=== PATIENT | male | born 1960 | race Caucasian/White ===

== ENCOUNTER 2017-06-26 19:03 | Emergency (ER) | payer OTHER ==
[~2017-06-26 19:03] MED LIST: AMIT25TA20 PO; LYRI50CA2 PO
[2017-06-26 19:08] VITALS: BP 155/86; PULSE 126; RESP 20; TEMP 97.3
--- NOTE | 2017-06-26 19:52 | PD ---
HPI Chief Complaint: GI Complaint Time Seen by Provider: 19:37 Travel History International Travel<30 days: No Contact w/Intl Traveler<30days: No Traveled to known affect area: No History of Present Illness HPI Patient is a 57-year-old male who after eating a hamburger and a pork chop tonight 2 hrs prior to arrival developed severe diarrhea and vomiting and epigastric pain >> He has had multiple episodes of diarrhea and vomiting. His had the same pork chop but she did not eat the hamburger. He ate same meat of the hamburger yesterday without any problem. He has no history of irritable bowel syndrome no history of ulcerative colitis or any other bowel issues. He is taken nothing to alleviate his symptoms and he has not seen another doctor prior to coming to the ER ,, he reports mild epigastric pain after vomiting but no other abdomen pain. His offers the information that whenever he has a breakfast sausage he often has the same problem during my initial exam and interview he gets up to run to the bathroom to have another episode of diarrhea PFSH Past Medical History Diminished Hearing: No Medical other: Yes (FALL FROM 17 FT 2008, DISC PAIN ) Tetanus Vaccination: Unknown Influenza Vaccination: No Past Surgical History Other Surgery: Yes (ENT X 2 ) Social History Alcohol Use: No (QUIT 33 YRS AGO) Tobacco Use: Yes (1/2 PPD) Substance Use: No Allergies-Medications (Allergen,Severity, Reaction): Coded Allergies: No Known Allergies (Unverified Adverse Reaction, Unknown, 06/26/17) Reported Meds & Prescriptions Reported Meds & Active Scripts Active Pepcid (Famotidine) 20 Mg Tab 20 Mg PO BID Zofran Odt (Ondansetron Odt) 4 Mg Tab 4 Mg SL Q6HR PRN Review of Systems Except as stated in HPI: all other systems reviewed are Neg Gastrointestinal: Positive: Nausea, Vomiting, Diarrhea, Abdominal Pain Physical Exam Narrative GENERAL: thin body habitus poor dentition AOX3 non toxic appearance SKIN: Warm and dry. HEAD: Atraumatic. Normocephalic. EYES: Pupils equal and round. No scleral icterus. No injection or drainage. ENT: No nasal bleeding or discharge. Mucous membranes pink and moist. NECK: Trachea midline. No JVD. CARDIOVASCULAR: Regular rate and rhythm. RESPIRATORY: No accessory muscle use. Clear to auscultation. Breath sounds equal bilaterally. GASTROINTESTINAL: Abdomen mild tender over epigastrum area .. , nondistended. Hepatic and splenic margins not palpable. MUSCULOSKELETAL: Extremities without clubbing, cyanosis, or edema. No obvious deformities. NEUROLOGICAL: Awake and alert. No obvious cranial nerve deficits. Motor grossly within normal limits. Five out of 5 muscle strength in the arms and legs. Normal speech. PSYCHIATRIC: Appropriate mood and affect; insight and judgment normal. Data Data Last Documented VS Vital Signs Date Time Temp Pulse Resp B/P (MAP) Pulse Ox O2 Delivery O2 Flow Rate FiO2 06/26/17 19:08 97.3 126 20 155/86 (109) Orders Orders Complete Blood Count With Diff (06/26/17 19:53) Comprehensive Metabolic Panel (06/26/17 19:53) Ckmb (Isoenzyme) Profile (06/26/17 19:53) Troponin I (06/26/17 19:53) Lipase (06/26/17 19:53) Ua Includes Microscopic (06/26/17 19:53) Alcohol (Ethanol) (06/26/17 19:53) Ondansetron Inj (Zofran Inj) (06/26/17 20:00) Sodium Chlor 0.9% 1000 Ml Inj (Ns 1000 M (06/26/17 20:00) Famotidine Inj (Pepcid Inj) (06/26/17 20:15) CKMB (06/26/17 20:25) CKMB% (06/26/17 20:25) Sodium Chlor 0.9% 1000 Ml Inj (Ns 1000 M (06/26/17 21:45) Ed Discharge Order (06/26/17 23:07) Labs Laboratory Tests Test 06/26/17 20:25 06/26/17 22:10 White Blood Count 17.3 TH/MM3 Red Blood Count 5.88 MIL/MM3 Hemoglobin 17.0 GM/DL Hematocrit 50.8 % Mean Corpuscular Volume 86.5 FL Mean Corpuscular Hemoglobin 28.9 PG Mean Corpuscular Hemoglobin Concent 33.4 % Red Cell Distribution Width 13.1 % Platelet Count 199 TH/MM3 Mean Platelet Volume 8.7 FL Neutrophils (%) (Auto) 89.9 % Lymphocytes (%) (Auto) 2.4 % Monocytes (%) (Auto) 2.6 % Eosinophils (%) (Auto) 1.0 % Basophils (%) (Auto) 4.1 % Neutrophils # (Auto) 15.6 TH/MM3 Lymphocytes # (Auto) 0.4 TH/MM3 Monocytes # (Auto) 0.4 TH/MM3 Eosinophils # (Auto) 0.2 TH/MM3 Basophils # (Auto) 0.7 TH/MM3 CBC Comment DIFF FINAL Differential Comment Blood Urea Nitrogen 19 MG/DL Creatinine 1.30 MG/DL Random Glucose 104 MG/DL Total Protein 7.6 GM/DL Albumin 4.1 GM/DL Calcium Level 9.1 MG/DL Alkaline Phosphatase 88 U/L Aspartate Amino Transf (AST/SGOT) 22 U/L Alanine Aminotransferase (ALT/SGPT) 18 U/L Total Bilirubin 0.6 MG/DL Sodium Level 138 MEQ/L Potassium Level 5.2 MEQ/L Chloride Level 105 MEQ/L Carbon Dioxide Level 28.6 MEQ/L Anion Gap 4 MEQ/L Estimat Glomerular Filtration Rate 57 ML/MIN Total Creatine Kinase 114 U/L Creatine Kinase MB 1.5 NG/ML Troponin I LESS THAN 0.02 NG/ML Lipase 91 U/L Ethyl Alcohol Level LESS THAN 3 MG/DL Urine Color YELLOW Urine Turbidity CLEAR Urine pH 5.0 Urine Specific [place] GREATER/EQUAL 1.030 Urine Protein TRACE mg/dL Urine Glucose (UA) NEG mg/dL Urine Ketones TRACE mg/dL Urine Occult Blood NEG Urine Nitrite NEG Urine Bilirubin NEG Urine Urobilinogen 0.2 MG/DL Urine Leukocyte Esterase NEG Urine WBC 0-2 /hpf Urine Squamous Epithelial Cells 0-5 /hpf Microscopic Urinalysis Comment CULT NOT INDICATED MDM Medical Decision Making Medical Screen Exam Complete: Yes Emergency Medical Condition: Yes Differential Diagnosis food toxin vs viral gastroenteritis vs obstruction , hepatits GB disease , pancreatitis Narrative Course pt given @ liters NS and zofran IV and PEPCID IV tolerated PO d/c with Zofran Rx and foolow up outpt with MD return if worse Diagnosis Primary Impression: Gastroenteritis and colitis, viral Scripts Famotidine (Pepcid) 20 Mg Tab 20 MG PO BID, #20 TAB 0 Refills Prov: Henry Keita MD 06/26/17 Ondansetron Odt (Zofran Odt) 4 Mg Tab 4 MG SL Q6HR Y for Nausea/Vomiting, #12 TAB 0 Refills Prov: Henry Keita MD 06/26/17 Disposition: 01 DISCHARGE HOME Henry Keita MD Jun 26, 2017 19:52
[2017-06-26] MEDS ORDERED: ONDANSETRON HCL 4 MG/2 ML VIAL IV PUSH ONE (20:00)
[2017-06-26] MEDS ORDERED: SODIUM CHLOR 0.9% 1000 ML INJ 1,000 ML IV ONE ×2 (20:00→21:45)
[2017-06-26] MEDS ORDERED: FAMOTIDINE 20 MG/2 ML VIAL IV PUSH SCH (20:15)
[2017-06-26 20:40] LABS: AUTOMATED NEUTROPHIL # 15.6 TH/MM3 (1.8-7.7); BASOPHIL # 0.7 TH/MM3 (0-0.2); BASOPHIL % 4.1 % (0.0-2.0); EOSINOPHIL # 0.2 TH/MM3 (0-0.4); HEMATOCRIT 50.8 % (39.0-51.0); LYMPH % 2.4 % (9.0-44.0); LYMPHOCYTE # 0.4 TH/MM3 (1.0-4.8); MEAN CELL VOLUME 86.5 FL (80.0-100.0); MEAN CORPUSCULAR HEMOGLOBIN 28.9 PG (27.0-34.0); MEAN CORPUSCULAR HGB CONC 33.4 % (32.0-36.0); MEAN PLATELET VOLUME 8.7 FL (7.0-11.0); MONO % 2.6 % (0.0-8.0); MONOCYTE # 0.4 TH/MM3 (0-0.9); NEUT % 89.9 % (16.0-70.0); PLATELET COUNT 199 TH/MM3 (150-450); RED BLOOD COUNT 5.88 MIL/MM3 (4.50-5.90); RED CELL DISTRIBUTION WIDTH 13.1 % (11.6-17.2); WHITE BLOOD COUNT 17.3 TH/MM3 (4.0-11.0)
[2017-06-26 20:47] LABS: CHLORIDE 105 MEQ/L (98-107); SODIUM (NA) 138 MEQ/L (136-145)
[2017-06-26 20:51] LABS: ALBUMIN 4.1 GM/DL (3.4-5.0); CALCIUM 9.1 MG/DL (8.5-10.1)
[2017-06-26 20:52] LABS: BICARBONATE 28.6 MEQ/L (21.0-32.0); BLOOD UREA NITROGEN 19 MG/DL (7-18); GLUCOSE,RANDOM 104 MG/DL (74-106)
[2017-06-26 20:54] LABS: ALT (GPT) 18 U/L (12-78); AST (GOT) 22 U/L (15-37)
[2017-06-26 20:55] LABS: GLOMERULAR FILTRATION RATE 57 ML/MIN (>89)
[2017-06-26 20:56] LABS: TOTAL BILIRUBIN ADULT 0.6 MG/DL (0.2-1.0); TOTAL PROTEIN 7.6 GM/DL (6.4-8.2)
[2017-06-26 20:57] LABS: ALKALINE PHOSPHATASE 88 U/L (45-117)
[2017-06-26 21:00] LABS: TROPONIN I LESS THAN 0.02 NG/ML (0.02-0.05)
[2017-06-26 22:30] LABS: BILIRUBIN, URINE NEG (NEG); BLOOD, URINE NEG (NEG); GLUCOSE,URINE NEG (NEG); KETONE, URINE TRACE mg/dL (NEG); NITRITE,URINE NEG (NEG); URINE COLOR YELLOW (YELLW/STRAW); URINE LEUKOCYTE ESTERASE NEG (NEG)
[2017-06-26 22:43] LABS: SQUAMOUS EPITHELIAL CELL URINE 0-5 /hpf (0-5); WBC, URINE 0-2 /hpf (0-5)
[2017-06-26] MEDS ORDERED: FAMO1TAB37 PO (22:50)
[2017-06-26] MEDS ORDERED: ZOFR4TAB3 SL (22:50)
== END 2017-06-26 23:24 | disposition home or self-care (01) ==
LOC: PHED 19:03
DX: A08.4 Viral intestinal infection, unspecified (principal); F17.210 Nicotine dependence, cigarettes, uncomplicated
CPT/HCPCS: 80053; 80307; 81001; 82550; 82552; 83690; 84484; 85025; 96361; 96374; 96375; 99284; J2405; J7030